=== PATIENT | male | born 1950 | race African-American/Black ===

== ENCOUNTER 2019-08-14 08:23 | Observation (INO) ==
[2019-08-14] MEDS ORDERED: ENOXAPARIN 100 MG/ML SYRINGE SUBCUT STA (09:05)
[2019-08-14] MEDS ORDERED: ASPIRIN 325 MG TABLET PO STA (09:05)
[2019-08-14 09:10] LABS: Basophils % 0.4 % (0.0-0.8); Eosinophils # 0.1 10*3/uL (0.0-0.87); Eosinophils % 0.5 % (0.00-10.9); Hematocrit 44.9 VOL% (42.0-52.0); Hemoglobin 14.5 GM/DL (14.0-18.0); Immature Granulocytes % 0.9 %; Immature Granulocytes Absolute 0.09 #; Lymphocytes # 1.4 10*3/uL (1.4-4.0); Lymphocytes % 13.4 % (21.2-54.2); Mean Corpuscular HGB Conc 32.3 GM/DL (32-36); Mean Corpuscular Volume 93.9 FL (87-102); Mean Platelet Volume 10.1 FL (9.6-12.0); Monocytes % 9.1 % (1.7-12.7); Neutrophils % 75.7 % (38.7-73.9); Platelet Count 176 T/CUMM (130-400); Red Blood Count 4.78 MC/CUMM (3.8-5.5); Red Cell Distribution Width 13.1 % (9.3-17.3); White Blood Count 10.3 T/CUMM (4-12)
[2019-08-14 09:28] LABS: Albumin 4.2 G/DL (3.4-5.0); Bilirubin,Total 0.6 MG/DL (0.2-1.0); Calcium 9.7 MG/DL (8.5-10.1); Osmolality,Calculated 273.8 MOS/KG (273-304); Total Protein 7.4 G/DL (6.4-8.3)
[2019-08-14] MEDS ORDERED: ZALEPLON 5 MG CAPSULE PO PRN (10:09)
[2019-08-14] MEDS ORDERED: MAGNESIUM SULF RIDER 4 GM in PREMIX 1 EACH IV PRN (10:09)
[2019-08-14] MEDS ORDERED: DOCUSATE SODIUM 100 MG CAPSULE PO PRN (10:09)
[2019-08-14] MEDS ORDERED: MAGNESIUM SULF RIDER 2 GM in PREMIX 1 EACH IV PRN (10:09)
[2019-08-14] MEDS ORDERED: traZODone 50 MG TABLET PO PRN (10:09)
[2019-08-14] MEDS ORDERED: diphenhydrAMINE CAP 25 MG CAPSULE PO PRN (10:09)
[2019-08-14] MEDS ORDERED: ALUMINUM/MAGNES/SIMETH MAX STR 30 ML UDCUP PO PRN (10:09)
[2019-08-14] MEDS ORDERED: ACETAMINOPHEN 325 MG TABLET PO PRN (10:09)
[2019-08-14] MEDS ORDERED: BISACODYL 5 MG TABLET PO PRN (10:09)
[2019-08-14] MEDS ORDERED: POTASSIUM CHLORIDE 20 MEQ TABLET PO PRN ×2 (10:09)
[2019-08-14] MEDS ORDERED: SIMETHICONE CHEW 125 MG TABLET PO PRN (10:09)
[2019-08-14] MEDS ORDERED: MORPHINE 4 MG/1 ML VIAL IV PRN (10:09)
[2019-08-14] MEDS ORDERED: hydrALAZINE 20 MG/1 ML VIAL IV PRN (10:09)
[2019-08-14] MEDS ORDERED: CALCIUM CARBONATE CHEW 500 MG TABLET PO PRN (10:09)
[2019-08-14] MEDS ORDERED: ONDANSETRON 4 MG/2 ML VIAL IV PRN (10:09)
[2019-08-14] MEDS ORDERED: guaiFENesin/DM ER 600-30 MG TABLET PO PRN (10:09)
[2019-08-14] MEDS ORDERED: ALUM/MAG/SIMETH/LIDO VISC 1:1 30 ML BOTTLE PO STA (10:18)
[2019-08-14 10:39] LABS: Barbiturates Screen,Urine Negative (Negative); Benzodiazepines Screen,Urine Negative (Negative); Cannabinoid Screen,Urine Negative (Negative); Opiate Screen,Urine Negative (Negative); Phencyclidine Screen,Urine Negative (Negative)
[2019-08-14 10:40] LABS: Risk Ratio 2.17; Thyroid Stimulating Hormone 1.11 uIU/ml (0.358-3.74)
[2019-08-14] MEDS ORDERED: FUROSEMIDE 40 MG/4 ML VIAL IV STA (11:12)
[2019-08-14 16:05] LABS: Apearance,Urine CLEAR (Clear); Bilirubin,Urine Negative (Negative); Blood, Urine Moderate mg/dL (Negative); Glucose,Urine (UA) Negative (Negative); Ketones,Urine Negative (Negative); Nitrite,Urine Negative (Negative); Protein,Urine Negative; RBC,Urine 30 /HPF (0-4); Urine Color Straw (Yellow); Urine Specific Gravity 1.014 (1.001-1.035); Urine Urobilinogen < 2.0 EU/DL (0.2-1.0); WBC,Urine 1 /HPF (0-6)
[2019-08-14] MEDS ORDERED: ATORVASTATIN 40 MG TABLET PO SCH (21:00)
[2019-08-14] MEDS: APIXABAN 5 MG TABLET PO SCH (22:27)
[2019-08-14] MEDS: carvediloL 25 MG TABLET PO SCH (22:27)
[2019-08-15 03:50] LABS: Basophils % 0.3 % (0.0-0.8); Eosinophils % 0.5 % (0.00-10.9); Hemoglobin 13.5 GM/DL (14.0-18.0); Immature Granulocytes Absolute 0.08 #; Lymphocytes # 1.9 10*3/uL (1.4-4.0); Mean Corpuscular HGB Conc 33.8 GM/DL (32-36); Mean Corpuscular Volume 90.7 FL (87-102); Mean Platelet Volume 9.9 FL (9.6-12.0); Monocytes % 11.8 % (1.7-12.7); Neutrophils % 61.4 % (38.7-73.9); Platelet Count 165 T/CUMM (130-400); Red Blood Count 4.41 MC/CUMM (3.8-5.5); Red Cell Distribution Width 13.2 % (9.3-17.3); White Blood Count 7.7 T/CUMM (4-12)
[2019-08-15 04:31] LABS: Albumin 3.8 G/DL (3.4-5.0); Bilirubin,Total 1.1 MG/DL (0.2-1.0); Calcium 9.5 MG/DL (8.5-10.1); Osmolality,Calculated 274.8 MOS/KG (273-304); Total Protein 6.5 G/DL (6.4-8.3)
[2019-08-15] MEDS ORDERED: predniSONE 10 MG TABLET PO SCH (09:00)
[2019-08-15] MEDS ORDERED: amLODIPine 5 MG TABLET PO SCH (09:00)
[2019-08-15] MEDS ORDERED: VALSARTAN/HCTZ 160-12.5 MG TABLET PO SCH (09:00)
[2019-08-15] MEDS ORDERED: MULTIVITAMIN (CENTRUM) TABLET PO SCH (09:00)
[2019-08-15] MEDS ORDERED: PANTOPRAZOLE 40 MG TABLET PO SCH (09:00)
[2019-08-15] MEDS: carvediloL 25 MG TABLET PO SCH (09:27)
[2019-08-15] MEDS: APIXABAN 5 MG TABLET PO SCH (09:28)
[2019-08-15 10:36] VITALS: BP 129/77
== END 2019-08-15 11:07 | disposition home or self-care (01) ==
LOC: N.ED 08:23 → N.EDINP 08:23 → N.2W 13:17
PROVIDERS: ADMIT Internal Medicine; ATTEND Internal Medicine

== ENCOUNTER 2020-07-22 13:54 | Observation (INO) ==
[2020-07-22] MEDS ORDERED: ORPHENADRINE 60 MG/2 ML VIAL IM STA (15:01)
[2020-07-22] MEDS ORDERED: KETOROLAC 30 MG/1 ML VIAL IM STA (15:01)
[2020-07-22 16:28] LABS: Basophils % 0.4 % (0.0-0.8); Eosinophils # 0.1 10*3/uL (0.0-0.87); Eosinophils % 1.9 % (0.00-10.9); Immature Granulocytes % 1.6 %; Immature Granulocytes Absolute 0.12 #; Lymphocytes # 1.5 10*3/uL (1.4-4.0); Lymphocytes % 19.9 % (21.2-54.2); Mean Corpuscular HGB Conc 34.9 GM/DL (32-36); Mean Corpuscular Volume 85.7 FL (87-102); Mean Platelet Volume 9.6 FL (9.6-12.0); Monocytes % 12.6 % (1.7-12.7); Neutrophils % 63.6 % (38.7-73.9); Platelet Count 219 T/CUMM (130-400); Red Blood Count 5.02 MC/CUMM (3.8-5.5); Red Cell Distribution Width 12.8 % (9.3-17.3); White Blood Count 7.5 T/CUMM (4-12)
[2020-07-22] MEDS ORDERED: MORPHINE 4 MG/1 ML VIAL IV STA (16:37)
[2020-07-22 16:49] LABS: Calcium 10.7 MG/DL (8.5-10.1); Osmolality,Calculated 261.7 MOS/KG (273-304); Potassium 3.8 MMOL/L (3.5-5.1)
[2020-07-22] MEDS ORDERED: GLUCAGON 1 MG VIAL IM PRN (19:15)
[2020-07-22] MEDS ORDERED: hydrALAZINE 20 MG/1 ML VIAL IV PRN (19:15)
[2020-07-22] MEDS ORDERED: ONDANSETRON 4 MG/2 ML VIAL IV PRN (19:15)
[2020-07-22] MEDS ORDERED: ACETAMINOPHEN 325 MG TABLET PO PRN (19:15)
[2020-07-22] MEDS ORDERED: DEXTROSE 50% 25 GM/50 ML VIAL IV PRN (19:15)
[2020-07-22] MEDS ORDERED: traMADol 50 MG TABLET PO PRN (19:17)
[2020-07-22 19:23] LABS: Bilirubin,Urine Negative (Negative); Blood, Urine Small mg/dL (Negative); Glucose,Urine (UA) Negative (Negative); Hyaline Casts,Urine 11 /LPF (0-3); Ketones,Urine 5 mg/dL (Negative); Mucus,Urine Occasional /LPF (Occasional); Nitrite,Urine Negative (Negative); Protein,Urine Negative; RBC,Urine 2 /HPF (0-4); Squamous Epithelial Cell,Urine Occasional /HPF (0-10); Urine Appearance CLEAR (Clear); Urine Color Yellow (Yellow); Urine Urobilinogen < 2.0 EU/DL (0.2-1.0)
[2020-07-22] MEDS: carvediloL 25 MG TABLET PO SCH (22:12)
[2020-07-22] MEDS: TRIAMCINOLONE 0.1% CREAM 15 GM TUBE TOP SCH (22:13)
[2020-07-22] MEDS: TERBINAFINE 250 MG TABLET PO SCH (22:38)
[2020-07-22] MEDS: MORPHINE 4 MG/1 ML VIAL IV PRN (22:39)
[2020-07-22] MEDS: ATORVASTATIN 40 MG TABLET PO SCH (22:39)
[2020-07-22] MEDS: DOCUSATE SODIUM 100 MG CAPSULE PO SCH (22:39)
[2020-07-22] MEDS: METHOCARBAMOL 500 MG TABLET PO PRN (22:39)
[2020-07-22] MEDS: ENOXAPARIN 40 MG/0.4 ML SYRINGE SUBCUT SCH (22:40)
[2020-07-22] MEDS: SODIUM CHLORIDE 0.9% 1,000 ML IV SCH (22:40)
[2020-07-23 05:49] LABS: Basophils % 0.5 % (0.0-0.8); Eosinophils # 0.2 10*3/uL (0.0-0.87); Eosinophils % 2.4 % (0.00-10.9); Hematocrit 39.9 VOL% (42.0-52.0); Hemoglobin 13.6 GM/DL (14.0-18.0); Immature Granulocytes % 1.2 %; Immature Granulocytes Absolute 0.09 #; Lymphocytes # 1.5 10*3/uL (1.4-4.0); Lymphocytes % 19.5 % (21.2-54.2); Mean Corpuscular HGB Conc 34.1 GM/DL (32-36); Mean Corpuscular Volume 88.1 FL (87-102); Mean Platelet Volume 9.8 FL (9.6-12.0); Monocytes % 12.6 % (1.7-12.7); Neutrophils % 63.8 % (38.7-73.9); Platelet Count 190 T/CUMM (130-400); Red Blood Count 4.53 MC/CUMM (3.8-5.5); Red Cell Distribution Width 12.9 % (9.3-17.3); White Blood Count 7.6 T/CUMM (4-12)
[2020-07-23 06:10] LABS: Albumin 3.3 G/DL (3.4-5.0); Calcium 9.8 MG/DL (8.5-10.1); Osmolality,Calculated 266.5 MOS/KG (273-304); Potassium 4.3 MMOL/L (3.5-5.1); Risk Ratio 2.4; Total Protein 6.5 G/DL (6.4-8.3)
[2020-07-23] MEDS: MORPHINE 4 MG/1 ML VIAL IV PRN ×3 (06:30→21:06)
[2020-07-23] MEDS: METHOCARBAMOL 500 MG TABLET PO PRN ×2 (11:30→21:07)
[2020-07-23] MEDS: hydroCHLOROthiazide 25 MG TABLET PO SCH (11:31)
[2020-07-23] MEDS: amLODIPine 10 MG TABLET PO SCH (11:31)
[2020-07-23] MEDS: carvediloL 25 MG TABLET PO SCH ×2 (11:31→16:54)
[2020-07-23] MEDS: MULTIVITAMIN (CENTRUM) TABLET PO SCH (11:32)
[2020-07-23] MEDS: OLMESARTAN 20 MG TABLET PO SCH (11:32)
[2020-07-23] MEDS: PANTOPRAZOLE 40 MG TABLET PO SCH (11:32)
[2020-07-23] MEDS: DOCUSATE SODIUM 100 MG CAPSULE PO SCH ×2 (11:32→21:07)
[2020-07-23] MEDS: predniSONE 20 MG TABLET PO SCH (11:32)
[2020-07-23] MEDS: TRIAMCINOLONE 0.1% CREAM 15 GM TUBE TOP SCH ×2 (11:35→21:07)
[2020-07-23] MEDS: TERBINAFINE 250 MG TABLET PO SCH ×2 (11:36→21:07)
[2020-07-23] MEDS: SODIUM CHLORIDE 0.9% 1,000 ML IV SCH (11:36)
[2020-07-23] MEDS: ENOXAPARIN 40 MG/0.4 ML SYRINGE SUBCUT SCH (21:07)
[2020-07-23] MEDS: ATORVASTATIN 40 MG TABLET PO SCH (21:07)
[2020-07-24] MEDS: SODIUM CHLORIDE 0.9% 1,000 ML IV SCH ×2 (01:30→20:26)
[2020-07-24] MEDS: MORPHINE 4 MG/1 ML VIAL IV PRN ×3 (01:35→17:07)
[2020-07-24] MEDS: METHOCARBAMOL 500 MG TABLET PO PRN ×2 (04:10→20:26)
[2020-07-24] MEDS: OLMESARTAN 20 MG TABLET PO SCH (08:29)
[2020-07-24] MEDS: hydroCHLOROthiazide 25 MG TABLET PO SCH (08:29)
[2020-07-24] MEDS: DOCUSATE SODIUM 100 MG CAPSULE PO SCH ×2 (08:30→20:26)
[2020-07-24] MEDS: PANTOPRAZOLE 40 MG TABLET PO SCH (08:30)
[2020-07-24] MEDS: TERBINAFINE 250 MG TABLET PO SCH ×2 (08:30→20:26)
[2020-07-24] MEDS: predniSONE 20 MG TABLET PO SCH (08:30)
[2020-07-24] MEDS: carvediloL 25 MG TABLET PO SCH ×2 (08:30→16:00)
[2020-07-24] MEDS: MULTIVITAMIN (CENTRUM) TABLET PO SCH (08:30)
[2020-07-24] MEDS: amLODIPine 10 MG TABLET PO SCH (08:30)
[2020-07-24 08:38] LABS: Calcium 9.5 MG/DL (8.5-10.1); Osmolality,Calculated 272.1 MOS/KG (273-304); Potassium 3.8 MMOL/L (3.5-5.1)
[2020-07-24] MEDS: TRIAMCINOLONE 0.1% CREAM 15 GM TUBE TOP SCH ×2 (09:13→20:28)
[2020-07-24] MEDS: GABAPENTIN 100 MG CAPSULE PO SCH ×2 (16:00→20:31)
[2020-07-24] MEDS: ATORVASTATIN 40 MG TABLET PO SCH (20:26)
[2020-07-24] MEDS: ENOXAPARIN 40 MG/0.4 ML SYRINGE SUBCUT SCH (20:31)
[2020-07-25] MEDS: carvediloL 25 MG TABLET PO SCH ×2 (08:51→16:40)
[2020-07-25] MEDS: PANTOPRAZOLE 40 MG TABLET PO SCH (08:51)
[2020-07-25] MEDS: amLODIPine 10 MG TABLET PO SCH (08:52)
[2020-07-25] MEDS: predniSONE 20 MG TABLET PO SCH (08:52)
[2020-07-25] MEDS: TERBINAFINE 250 MG TABLET PO SCH ×2 (08:52→20:14)
[2020-07-25] MEDS: hydroCHLOROthiazide 25 MG TABLET PO SCH (08:52)
[2020-07-25] MEDS: OLMESARTAN 20 MG TABLET PO SCH (08:52)
[2020-07-25] MEDS: MULTIVITAMIN (CENTRUM) TABLET PO SCH (08:53)
[2020-07-25] MEDS: GABAPENTIN 100 MG CAPSULE PO SCH ×3 (08:54→20:14)
[2020-07-25] MEDS: DOCUSATE SODIUM 100 MG CAPSULE PO SCH ×2 (08:54→20:14)
[2020-07-25] MEDS: TRIAMCINOLONE 0.1% CREAM 15 GM TUBE TOP SCH ×2 (08:55→20:15)
[2020-07-25] MEDS ORDERED: POLYETHYLENE GLYCOL POWDER 17 GM PACK PO PRN (11:25)
[2020-07-25] MEDS: SODIUM CHLORIDE 0.9% 1,000 ML IV SCH (14:18)
[2020-07-25] MEDS: METHOCARBAMOL 500 MG TABLET PO PRN (20:14)
[2020-07-25] MEDS: ATORVASTATIN 40 MG TABLET PO SCH (20:14)
[2020-07-25] MEDS: ENOXAPARIN 40 MG/0.4 ML SYRINGE SUBCUT SCH (20:15)
[2020-07-25] MEDS: MORPHINE 4 MG/1 ML VIAL IV PRN (22:25)
[2020-07-26] MEDS: SODIUM CHLORIDE 0.9% 1,000 ML IV SCH (03:40)
[2020-07-26] MEDS: METHOCARBAMOL 500 MG TABLET PO PRN (03:40)
[2020-07-26] MEDS: MORPHINE 4 MG/1 ML VIAL IV PRN ×2 (09:22→14:25)
[2020-07-26] MEDS ORDERED: ROPIVACAINE 0.5% 30 ML VIAL ONE (10:52)
[2020-07-26] MEDS ORDERED: methylPREDNISolone ACETATE 80 MG/1 ML VIAL ONE (10:53)
[2020-07-26] MEDS: MULTIVITAMIN (CENTRUM) TABLET PO SCH (11:05)
[2020-07-26] MEDS: carvediloL 25 MG TABLET PO SCH ×2 (11:05→16:14)
[2020-07-26] MEDS: hydroCHLOROthiazide 25 MG TABLET PO SCH (11:06)
[2020-07-26] MEDS: DOCUSATE SODIUM 100 MG CAPSULE PO SCH ×2 (11:06→21:53)
[2020-07-26] MEDS: TERBINAFINE 250 MG TABLET PO SCH ×2 (11:06→21:54)
[2020-07-26] MEDS: GABAPENTIN 100 MG CAPSULE PO SCH ×3 (11:06→21:53)
[2020-07-26] MEDS: PANTOPRAZOLE 40 MG TABLET PO SCH (11:07)
[2020-07-26] MEDS: predniSONE 20 MG TABLET PO SCH (11:07)
[2020-07-26] MEDS: amLODIPine 10 MG TABLET PO SCH (11:08)
[2020-07-26] MEDS: OLMESARTAN 20 MG TABLET PO SCH (11:08)
[2020-07-26] MEDS: TRIAMCINOLONE 0.1% CREAM 15 GM TUBE TOP SCH ×2 (11:09→21:58)
[2020-07-26] MEDS ORDERED: LIDOCAINE 2% 5 ML VIAL ONE (11:12)
[2020-07-26] MEDS ORDERED: propofoL 200 MG/20 ML VIAL IV ONE (11:12)
[2020-07-26] MEDS ORDERED: fentaNYL 100 MCG/2 ML VIAL ONE (11:13)
[2020-07-26] MEDS ORDERED: LACTATED RINGERS 1,000 ML IV SCH (11:30)
[2020-07-26] MEDS ORDERED: ENOXAPARIN 40 MG/0.4 ML SYRINGE SUBCUT SCH (21:00)
[2020-07-26] MEDS: ATORVASTATIN 40 MG TABLET PO SCH (21:54)
[2020-07-27] MEDS: SODIUM CHLORIDE 0.9% 1,000 ML IV SCH ×2 (01:46→10:15)
[2020-07-27] MEDS: carvediloL 25 MG TABLET PO SCH (08:44)
[2020-07-27] MEDS: OLMESARTAN 20 MG TABLET PO SCH (08:44)
[2020-07-27] MEDS: amLODIPine 10 MG TABLET PO SCH (08:44)
[2020-07-27] MEDS: GABAPENTIN 100 MG CAPSULE PO SCH (08:44)
[2020-07-27] MEDS: hydroCHLOROthiazide 25 MG TABLET PO SCH (08:45)
[2020-07-27] MEDS: PANTOPRAZOLE 40 MG TABLET PO SCH (08:45)
[2020-07-27] MEDS: predniSONE 20 MG TABLET PO SCH (08:45)
[2020-07-27] MEDS: MULTIVITAMIN (CENTRUM) TABLET PO SCH (08:45)
[2020-07-27] MEDS: DOCUSATE SODIUM 100 MG CAPSULE PO SCH (08:46)
[2020-07-27] MEDS: TRIAMCINOLONE 0.1% CREAM 15 GM TUBE TOP SCH (08:46)
[2020-07-27] MEDS: TERBINAFINE 250 MG TABLET PO SCH (10:35)
[2020-07-27 11:13] VITALS: BP 124/70
== END 2020-07-27 15:26 | disposition home or self-care (01) ==
LOC: EDBD → EDUNIT# → N.ED 13:54 → N.EDINP 19:14 → INTOOBSV 19:14 → SUATTDRO 19:14 → N.EDINP 20:25 → N.3E 21:03
PROVIDERS: ADMIT Internal Medicine; ATTEND Internal Medicine

== ENCOUNTER 2022-08-07 11:06 | Observation (INO) ==
[2022-08-07 12:09] LABS: Basophils % 0.1 % (0.0-0.8); Hematocrit 37.7 VOL% (42.0-52.0); Immature Granulocytes % 1.8 %; Immature Granulocytes Absolute 0.24 #; Lymphocytes # 1.1 10*3/uL (1.4-4.0); Lymphocytes % 7.7 % (21.2-54.2); Mean Corpuscular HGB Conc 34.5 GM/DL (32-36); Mean Corpuscular Volume 89.5 FL (87-102); Mean Platelet Volume 9.3 FL (9.6-12.0); Monocytes # 1.5 10*3/uL (0.11-0.8); Monocytes % 10.9 % (1.7-12.7); Neutrophils % 79.5 % (38.7-73.9); Platelet Count 180 T/CUMM (130-400); Red Blood Count 4.21 MC/CUMM (3.8-5.5); Red Cell Distribution Width 13.2 % (9.3-17.3); White Blood Count 13.57 T/CUMM (4-12)
[2022-08-07 12:18] LABS: Bilirubin,Urine Negative (Negative); Blood, Urine Negative (Negative); Glucose,Urine (UA) Negative (Negative); Ketones,Urine Negative (Negative); Mucus,Urine Occasional /LPF (Occasional); Nitrite,Urine Negative (Negative); Protein,Urine Negative (Negative); RBC,Urine 2 /HPF (0-4); Sperm,Urine Occasional /HPF (Negative); Urine Appearance Clear (Clear); Urine Color Yellow (Yellow); Urine Specific Gravity 1.015 (1.001-1.035); Urine Urobilinogen 0.2 eU/dL (<2.0); Urine pH 5.5 (4.5-8.0)
[2022-08-07 12:22] LABS: PT Patient Result 10.9 SECS (10.1-12.1)
[2022-08-07 12:29] LABS: Albumin 3.8 G/DL (3.4-5.0); Bilirubin,Total 0.5 MG/DL (0.20-1.00); Calcium 9.2 MG/DL (8.5-10.1); Osmolality,Calculated 273.4 MOS/KG (273-304); Potassium 4.5 MMOL/L (3.5-5.1); Total Protein 6.4 G/DL (6.4-8.2)
[2022-08-07] MEDS ORDERED: FUROSEMIDE 40 MG/4 ML VIAL IV STA (12:39)
[2022-08-07] MEDS ORDERED: ACETAMINOPHEN 325 MG TABLET PO PRN (13:43)
[2022-08-07] MEDS ORDERED: hydrALAZINE 20 MG/1 ML VIAL IV PRN (13:43)
[2022-08-07] MEDS ORDERED: ONDANSETRON 4 MG/2 ML VIAL IV PRN (13:43)
[2022-08-07] MEDS ORDERED: DOCUSATE SODIUM 100 MG CAPSULE PO PRN (13:43)
[2022-08-07] MEDS ORDERED: PNEUMOCOCCAL VACCINE (20 VALENT) 0.5 ML SYRINGE IM ONE (15:12)
[2022-08-07] MEDS ORDERED: FAMOTIDINE 20 MG TABLET PO ONE (16:28)
[2022-08-07] MEDS ORDERED: hydrALAZINE 25 MG TABLET PO ONE (16:28)
[2022-08-07] MEDS: FUROSEMIDE 40 MG/4 ML VIAL IV SCH (16:51)
[2022-08-07] MEDS ORDERED: ENOXAPARIN 40 MG/0.4 ML SYRINGE SUBCUT SCH (21:00)
[2022-08-07] MEDS: APIXABAN 5 MG TABLET PO SCH (21:55)
[2022-08-07] MEDS: ATORVASTATIN 40 MG TABLET PO SCH (21:55)
[2022-08-07] MEDS: predniSONE 5 MG TABLET PO SCH (21:55)
[2022-08-07] MEDS: FAMOTIDINE 20 MG TABLET PO SCH (21:56)
[2022-08-08 05:45] LABS: Basophils % 0.3 % (0.0-0.8); Eosinophils % 0.2 % (0.00-10.9); Hematocrit 37.8 VOL% (42.0-52.0); Hemoglobin 12.9 GM/DL (14.0-18.0); Lymphocytes # 1.8 10*3/uL (1.4-4.0); Lymphocytes % 17.2 % (21.2-54.2); Mean Corpuscular HGB Conc 34.1 GM/DL (32-36); Mean Corpuscular Volume 90.9 FL (87-102); Monocytes # 1.3 10*3/uL (0.11-0.8); Monocytes % 13.1 % (1.7-12.7); Neutrophils % 67.2 % (38.7-73.9); Platelet Count 173 T/CUMM (130-400); Red Blood Count 4.16 MC/CUMM (3.8-5.5); Red Cell Distribution Width 13.4 % (9.3-17.3); White Blood Count 10.19 T/CUMM (4-12)
[2022-08-08 06:12] LABS: Osmolality,Calculated 275.2 MOS/KG (273-304); Potassium 3.8 MMOL/L (3.5-5.1)
[2022-08-08 06:23] LABS: Folate 15.68 NG/ML (5.38-24.0); Vitamin B12 841 PG/ML (211-911)
[2022-08-08 06:27] LABS: % Iron Saturation 25.3 % (18-50); Ferritin 56.9 ng/mL (26-388)
[2022-08-08 06:32] LABS: Osmolality,Calculated 275.2 MOS/KG (273-304); Potassium 3.8 MMOL/L (3.5-5.1); Risk Ratio 1.92; Thyroid Stimulating Hormone 0.793 uIU/ml (0.358-3.74); VLDL Cholesterol 14.6 MG/DL
[2022-08-08 07:01] LABS: Sedimentation Rate-Westergren 5 MM/HR (0-20)
[2022-08-08] MEDS ORDERED: PANTOPRAZOLE 40 MG TABLET PO SCH (09:00)
[2022-08-08] MEDS ORDERED: PANTOPRAZOLE 40 MG VIAL IV SCH (09:00)
[2022-08-08] MEDS: MULTIVITAMIN (CENTRUM) TABLET PO SCH (09:41)
[2022-08-08] MEDS: FUROSEMIDE 40 MG/4 ML VIAL IV SCH ×2 (09:41→15:15)
[2022-08-08] MEDS: FAMOTIDINE 20 MG TABLET PO SCH ×2 (09:42→22:02)
[2022-08-08] MEDS: APIXABAN 5 MG TABLET PO SCH ×2 (09:42→22:02)
[2022-08-08] MEDS: predniSONE 5 MG TABLET PO SCH ×2 (09:42→15:15)
[2022-08-08] MEDS: VALSARTAN 160 MG TABLET PO SCH (09:42)
[2022-08-08] MEDS: PANTOPRAZOLE 40 MG TABLET PO SCH (09:42)
[2022-08-08 09:59] LABS: Hemoglobin A1 (Alkaline) 97.2 % (96.5-98.5); Hemoglobin A2 (Alkaline) 2.8 % (1.5-3.5)
[2022-08-08] MEDS ORDERED: SIMETHICONE CHEW 125 MG TABLET PO PRN (13:44)
[2022-08-08] MEDS ORDERED: SIMETHICONE CHEW 125 MG TABLET PO ONE (14:00)
[2022-08-08] MEDS ORDERED: SPIRONOLACTONE 25 MG TABLET PO ONE (17:00)
[2022-08-08] MEDS: hydrALAZINE 25 MG TABLET PO SCH (21:57)
[2022-08-08] MEDS: ATORVASTATIN 40 MG TABLET PO SCH (22:02)
[2022-08-09 06:06] LABS: Basophils % 0.2 % (0.0-0.8); Eosinophils # 0.1 10*3/uL (0.0-0.87); Eosinophils % 0.5 % (0.00-10.9); Hemoglobin 12.6 GM/DL (14.0-18.0); Immature Granulocytes % 2.1 %; Immature Granulocytes Absolute 0.23 #; Lymphocytes # 2.5 10*3/uL (1.4-4.0); Lymphocytes % 23.1 % (21.2-54.2); Mean Corpuscular HGB Conc 34.1 GM/DL (32-36); Mean Corpuscular Volume 88.9 FL (87-102); Mean Platelet Volume 9.6 FL (9.6-12.0); Monocytes # 1.3 10*3/uL (0.11-0.8); Monocytes % 12.1 % (1.7-12.7); Platelet Count 159 T/CUMM (130-400); Red Blood Count 4.16 MC/CUMM (3.8-5.5); Red Cell Distribution Width 13.5 % (9.3-17.3); White Blood Count 10.72 T/CUMM (4-12)
[2022-08-09 06:38] LABS: Calcium 8.7 MG/DL (8.5-10.1); Osmolality,Calculated 274.2 MOS/KG (273-304); Potassium 3.8 MMOL/L (3.5-5.1)
[2022-08-09] MEDS ORDERED: SPIRONOLACTONE 25 MG TABLET PO SCH (09:00)
[2022-08-09] MEDS: VALSARTAN 160 MG TABLET PO SCH (10:08)
[2022-08-09] MEDS: FAMOTIDINE 20 MG TABLET PO SCH (10:08)
[2022-08-09] MEDS: FUROSEMIDE 40 MG/4 ML VIAL IV SCH (10:09)
[2022-08-09] MEDS: hydrALAZINE 25 MG TABLET PO SCH ×2 (10:09→15:59)
[2022-08-09] MEDS: APIXABAN 5 MG TABLET PO SCH (10:09)
[2022-08-09] MEDS: MULTIVITAMIN (CENTRUM) TABLET PO SCH (10:09)
[2022-08-09] MEDS: PANTOPRAZOLE 40 MG TABLET PO SCH (10:09)
[2022-08-09 12:15] VITALS: BP 142/77
[2022-08-10] MEDS ORDERED: FUROSEMIDE 40 MG TABLET PO SCH (09:00)
== END 2022-08-09 16:05 | disposition home or self-care (01) ==
LOC: N.EDINP 11:06 → N.ED 11:06 → SUATTDRO 13:43 → N.2E 15:40
PROVIDERS: ADMIT Internal Medicine; ATTEND Family Medicine